=== PATIENT | male | born 1975 | race Caucasian/White ===

== ENCOUNTER 2021-09-21 07:25 | Day surgery (SDC) | payer BC ==
[~2021-09-21] VITALS: Ht 167.6 cm; Wt 94.0 kg
[~2021-09-21 07:25] MED LIST: AMBIEN5 MG PO
--- NOTE | 2021-09-21 09:06 | NUR ---
09/21/21 0906 ALEX DAILEY 0856-PATIENT TO PACU ON 4L VIA NC. PATIENT IS DROWSY. VSS. PATIENT DENIES PAIN OR NAUSEA. 0902-HOB RAISED. ENCOURAGED PATIENT TO TAKE DEEP BREATHS.
--- NOTE | 2021-09-22 15:08 | OR ---
[facility] [address] [place], [place] [address] Signed DATE OF OPERATION: 09/21/2021 SURGEON: Luma Servin MD PREOPERATIVE DIAGNOSIS: Family history of colon cancer (father age 70 and paternal uncle). POSTOPERATIVE DIAGNOSIS: Normal colon to cecum except for arteriovenous malformations of left colon. PROCEDURE: Total colonoscopy to cecum. ANESTHESIA: Intravenous sedation, fentanyl 100 mcg and Versed 4 mg. INDICATIONS: This a 46-year-old white man is a patient of Shawna Monreal PA-C. His father recently was diagnosed with colon cancer, his age 70. Additionally, he has family history of colon cancer in a paternal uncle. He was admitted at this time to undergo screening colonoscopy. He understands the risks of bleeding, infection, and perforation. FINDINGS: The prep was excellent. Complete colonoscopy was undertaken of the cecum without question. He had no polyps. There were few arteriovenous malformations in the left colon, but no other findings of concern. DESCRIPTION OF PROCEDURE: The patient was brought to the endoscopy suite and placed in lateral decubitus position given intravenous sedation to the point of slurred speech and nystagmus. Digital rectal examination was normal. An Olympus video colonoscope was passed into the rectum and manipulated throughout the colon noting arteriovenous malformations of the left colon to a small degree, none were bleeding. Scope was ultimately advanced to the cecum. The ileocecal valve and appendiceal orifice were normal. The scope was withdrawn from that point. Examination throughout showed no sign of abnormality other than AVMs on the left side. Retroflexed view was normal as well. The scope was removed and the patient was taken to the recovery room in good condition. Electronically Signed By: LUMA SERVIN MD 09/22/21 1508 PATIENT NAME: TON CHAMORRO OPERATIVE REPORT DATE OF : 77 REPORT #: [id number] PHYSICIAN: LUMA SERVIN MD PCP: SHAWNA MONREAL PA-C REPORT IS CONFIDENTIAL AND NOT TO BE RELEASED WITHOUT AUTHORIZATION [facility] [address] [facility] [place], [place] [address] Signed CONCLUDING DIAGNOSIS: No evidence of polyps; small AVMs, asymptomatic. PLAN: Recommend repeat colonoscopy in 5 years based on current guidelines for patients with first-degree relative with colon cancer history. MD DYANA Douglass/MODL /[id number] cc: Shawna Monreal PA-C Copies: SHAWNA MONREAL PA-C ~ Electronically Signed By: LUMA SERVIN MD 09/22/21 1508 PATIENT NAME: TON CHAMORRO DENNIS OPERATIVE REPORT DATE OF : 77 REPORT #: [id number] PHYSICIAN: LUMA SERVIN MD PCP: SHAWNA MONREAL PA-C REPORT IS CONFIDENTIAL AND NOT TO BE RELEASED WITHOUT AUTHORIZATION
== END 2021-09-21 09:40 | disposition home or self-care (01) ==
LOC: DS 07:25 → OPS 07:25 → DS 07:45 → OPS 07:45
PROVIDERS: ATTEND Surgery
PROC: 0DJD8ZZ Inspection of Lower Intestinal Tract, Via Natural or Artificial Opening Endoscopic (ICD-10-PCS; principal; 2021-09-21 07:45)
DX: Z12.11 Encounter for screening for malignant neoplasm of colon (principal); Q27.39 Arteriovenous malformation, other site; Z80.0 Family history of malignant neoplasm of digestive organs; Z90.49 Acquired absence of other specified parts of digestive tract; Z98.890 Other specified postprocedural states
CPT/HCPCS: 99153; G0500; J2250; J3010

== ENCOUNTER 2024-02-27 05:30 | Day surgery (SDC) | payer BC ==
[~2024-02-27] VITALS: Ht 175.3 cm; Wt 88.6 kg
[~2024-02-27 05:30] MED LIST changes: +LACTATED RINGER'S 1,000 ML IV SCH
[2024-02-27 05:55] VITALS: BP 131/86
[2024-02-27] MEDS ORDERED: CEFAZOLIN SODIUM 2 GM/20 ML SYR IV SCH (07:00)
[2024-02-27] MEDS ORDERED: LIDOCAINE HCL 1% 5 ML SDV INJ ONE (07:00)
[2024-02-27] MEDS ORDERED: IBLOOD GLUCOSE TEST STRIP 1 EA TEST VI PRN (07:00)
[2024-02-27] MEDS ORDERED: MIDAZOLAM HCL 2 MG/2 ML VIAL ONE (07:23)
[2024-02-27] MEDS ORDERED: propofoL 200 MG/20 ML VIAL ONE (07:23)
[2024-02-27] MEDS ORDERED: ondansetron HCL 4 MG/2 ML VIAL ONE (07:23)
[2024-02-27] MEDS ORDERED: dexmedeTOMIDine HCl 200 MCG/2 ML VIAL ONE (07:23)
[2024-02-27] MEDS ORDERED: KETOROLAC TROMETHAMINE 30 MG/ML VIAL ONE (07:23)
[2024-02-27] MEDS ORDERED: LIDOCAINE HCL 0.5% 50 ML SDV ONE (07:23)
[2024-02-27] MEDS ORDERED: DEXAMETHASONE SOD PHOS 4 MG/ML VIAL ONE (07:23)
[2024-02-27] MEDS ORDERED: NALOXONE HCL 0.4 MG SYR IV PRN (08:00)
[2024-02-27] MEDS ORDERED: HYDROCODONE/ACETA 5/325 TAB PO PRN (08:00)
[2024-02-27] MEDS ORDERED: HYDROCODON-ACE1 EA10 PO (08:38)
--- NOTE | 2024-02-27 09:07 | NUR ---
02/27/24 0907 Isamar Rodriguez PATIENT WAKES SUDDENLY. HE LIFTS HIS HEAD OFF THE STRETCHER. HE DENIES PAIN AND REPORTS HIS RIGHT HAND REMAINS NUMB. [facility] IN [facility].
[2024-02-27 09:16] VITALS: BP 117/81
--- NOTE | 2024-02-27 10:47 | OR ---
[facility] [address] [facility] [place] [place] [address] Signed DATE OF OPERATION: 02/27/2024 SURGEON: Guevara Hernandez MD PREOPERATIVE DIAGNOSIS: Carpal tunnel syndrome, right. POSTOPERATIVE DIAGNOSIS: Carpal tunnel syndrome, right. PROCEDURE PERFORMED: Right carpal tunnel release. MILKING SYSTEM INSTALLER: None. ANESTHESIA: Yasmany block. TOURNIQUET TIME: 20 minutes. BRIEF HISTORY: Ton is a 48-year-old gentleman with pain and numbness in his hand. Risks and benefits of operative treatment were discussed with him. Nerve conduction study showed significant carpal tunnel. He elected to proceed. DESCRIPTION OF PROCEDURE: Once consent was obtained, he was taken to the operating room. After adequate anesthesia, he was left on day surgery bed with the hand table. The arm was then prepped and draped in a standard sterile fashion and the carpal tunnel was approached through a 1.5 cm incision in the distal wrist crease carried through the skin and subcutaneous tissue and down to the transverse carpal ligament. The palmaris longus was identified, retracted and protected. The transverse carpal ligament was dissected free of overlying soft tissue and released proximally a cm and a half, distally to the distal extent. This was carefully palpated using a Mazon and found to be completely released. The carpal tunnel was quite tight in its distal 2/3rd. The wound was copiously irrigated with normal saline, closed with 3-0 nylon and injected with 10 mL of 0.25% plain Marcaine. The wound was dressed with Adaptic, ABD, and Herbert wrap. He was taken to the recovery Electronically Signed By: GUEVARA HERNANDEZ MD 02/27/24 1047 PATIENT NAME: TON CHAMORRO OPERATIVE REPORT DATE OF : 77 REPORT #: [id number] PHYSICIAN: GUEVARA HERNANDEZ MD PCP: SOPHIE PINEDA MD REPORT IS CONFIDENTIAL AND NOT TO BE RELEASED WITHOUT AUTHORIZATION [facility] [address] [facility] [place] [place] [address] Signed room in satisfactory condition. All sponge, needle, and instrument counts were correct. Guevara Hernandez MD BA/LUCIAL /[id number] Copies: ~ Electronically Signed By: GUEVARA HERNANDEZ MD 02/27/24 1047 PATIENT NAME: TON CHAMORRO OPERATIVE REPORT DATE OF : 77 REPORT #: [id number] PHYSICIAN: GUEVARA HERNANDEZ MD PCP: SOPHIE PINEDA MD REPORT IS CONFIDENTIAL AND NOT TO BE RELEASED WITHOUT AUTHORIZATION
== END 2024-02-27 09:26 | disposition home or self-care (01) ==
LOC: DS 05:30
PROVIDERS: ATTEND Specialist
PROC: 01N50ZZ Release Median Nerve, Open Approach (ICD-10-PCS; principal; 2024-02-27 09:00)
DX: G56.01 Carpal tunnel syndrome, right upper limb (principal); Z87.891 Personal history of nicotine dependence
CPT/HCPCS: J0690; J1100; J1885; J2250; J2405; J2704; J7121

== ENCOUNTER 2024-06-04 09:11 | Day surgery (SDC) | payer BC ==
[~2024-06-04] VITALS: Ht 175.3 cm; Wt 81.8 kg
--- NOTE | ~2024-06-04 | OR ---
[facility] [address] [facility] [place] [address] Draft DATE OF OPERATION: 06/04/2024 SURGEON: Guevara Hernandez MD PREOPERATIVE DIAGNOSIS: Carpal tunnel syndrome, left. POSTOPERATIVE DIAGNOSIS: Carpal tunnel syndrome, left. PROCEDURE PERFORMED: Carpal tunnel release, left. PANTRY ATTENDANT: None. ANESTHESIA: Yasmany block. TOURNIQUET TIME: 15 minutes. BRIEF HISTORY: Ton is a 49-year-old gentleman with bilateral carpal tunnel. He underwent successful right release and wished to proceed with a left. Risks, benefits and alternatives were discussed and he understands and wished to proceed. PROCEDURE IN DETAIL: Once consent was obtained, he was taken to the operating room. After adequate anesthesia, his hand was placed on a hand table. The hand and forearm were prepped and draped in a standard sterile fashion. The carpal tunnel was approached through a 1.5 cm transverse incision in the distal wrist crease. This was carried through the skin and subcutaneous tissue. The palmaris longus was identified, released and retracted. There was extensive scarring in his palm and this was released to allow better visualization. The transverse carpal ligament was identified under loupe magnification, was dissected free of overlying soft tissue proximally and distally. The ligament was then released proximally a cm and half and distally to the distal extent. This was palpated using a [place] and found to be completely released. The nerve looked normal in confirmation. The wound was copiously irrigated with normal saline, closed with 3-0 nylon and infiltrated with 7 mL 0.25% plain Marcaine. The wound was dressed with bacitracin, PATIENT NAME: TON CHAMORRO OPERATIVE REPORT DATE OF : 77 REPORT #: [id number] PHYSICIAN: GUEVARA HERNANDEZ MD PCP: SOPHIE PINEDA MD REPORT IS CONFIDENTIAL AND NOT TO BE RELEASED WITHOUT AUTHORIZATION [facility] [address] [facility] [place] [address] Draft Adaptic, 4 x 8s, and gauze. He tolerated the procedure well. All sponge, needle, and instrument counts were correct. Guevara Hernandez MD BA/LUCIAL /[id number] Copies: ~ PATIENT NAME: TON CHAMORRO OPERATIVE REPORT DATE OF : 77 REPORT #: [id number] PHYSICIAN: GUEVARA HERNANDEZ MD PCP: SOPHIE PINEDA MD REPORT IS CONFIDENTIAL AND NOT TO BE RELEASED WITHOUT AUTHORIZATION
[~2024-06-04 09:11] MED LIST changes: +CEFAZOLIN SODIUM 2 GM/20 ML SYR IV SCH; +HYDROCODON-ACE1 EA10 PO; +IBLOOD GLUCOSE TEST STRIP 1 EA TEST VI PRN; +L-LYSINE500 M1 PO; +LIDOCAINE HCL 1% 5 ML SDV INJ ONE
[2024-06-04 09:28] VITALS: BP 128/90
--- NOTE | 2024-06-04 11:01 | NUR ---
CASE ADDED ON AHEAD OF PT. HE HAS BEEN INFORMED. CANNOT TELL HIME TIME OF WAIT FOR SURE. UP TO BR AND RETURNED TO [facility]. IV PATENT.
[2024-06-04] MEDS ORDERED: propofoL 200 MG/20 ML VIAL ONE (11:38)
[2024-06-04] MEDS ORDERED: LIDOCAINE HCL 0.5% 50 ML SDV ONE (11:38)
[2024-06-04] MEDS ORDERED: KETOROLAC TROMETHAMINE 30 MG/ML VIAL ONE (11:38)
[2024-06-04] MEDS ORDERED: DEXAMETHASONE SOD PHOS 4 MG/ML VIAL ONE (11:38)
[2024-06-04] MEDS ORDERED: MIDAZOLAM HCL 2 MG/2 ML VIAL ONE (11:42)
[2024-06-04] MEDS ORDERED: fentaNYL citrate 100 MCG/2 ML VIAL ONE (11:42)
[2024-06-04] MEDS ORDERED: HYDROCODONE/ACETA 5/325 TAB PO PRN (12:00)
--- NOTE | 2024-06-04 13:54 | NUR ---
06/04/24 1354 Luz Zaman 1235: PATIENT ARRIVED TO PACU UNRESPOSIVE. REQUIRING JAW HOLDING BY RN. 1242: PATIENT WAKING FROM ANESTHESIA. DENIES PAIN. 1305: DISCHARGE INSTRUCTIONS GIVEN. STAND BY ASSIST WHILE PATIENT MOVED TO SIDE OF BED AND STOOD AT BEDSIDE. PATIENT GETTING DRESSED. 1313: IV DC'D WNL. TIP INTACT. DRESSING APPLIED. PATIENT DISCHARGE TO HOME VIA WHEELCHAIR WITH . ICE PACK ON LOWER LEFT ARM.
[2024-06-04 13:57] VITALS: BP 110/82
== END 2024-06-04 13:13 | disposition home or self-care (01) ==
LOC: DS 09:11
PROVIDERS: ATTEND Specialist
PROC: 01N50ZZ Release Median Nerve, Open Approach (ICD-10-PCS; principal; 2024-06-04 11:45)
DX: G56.02 Carpal tunnel syndrome, left upper limb (principal); Z87.891 Personal history of nicotine dependence
CPT/HCPCS: J0690; J1100; J1885; J2250; J2704; J3010; J7121